=== PATIENT | male | born 1965 | race Caucasian/White ===

== ENCOUNTER 2020-07-14 09:39 | Outpatient (REF) | payer BC, SELFPAY | END 2020-07-14 09:40 | disposition home or self-care (01) | LOC: HO.HMGCLDS 09:39 | PROVIDERS: PCP Physician Assistant; Visit Provider Internal Medicine | DX: Z20.828 Contact with and (suspected) exposure to other viral communicable diseases (principal) | CPT/HCPCS: 36415; 87635 ==

== ENCOUNTER 2021-06-14 06:35 | Outpatient (REF) | payer BC, SELFPAY ==
[2021-06-14 11:16] LABS: MANUAL DIFF FLAG NO
[2021-06-14 11:30] LABS: Basophils Percent Auto 0.5 % (0-2); Eosinophils Absolute Auto 0.2 X10*3/uL (0.0-0.4); Eosinophils Percent Auto 2.5 % (0-4); Hematocrit 40.4 % (42-52); Hemoglobin 13.5 g/dl (14.0-18.0); Imm Gran Abs Auto 0.03 X10*3/uL (0.00-0.03); Imm Gran Pct Auto 0.4 % (0.0-0.4); Lymphocytes Absolute Auto 2.4 X10*3/uL (1.2-4.9); Lymphocytes Percent Auto 29.6 % (20-40); Mean Corpuscular HGB Conc 33.4 g/dl (31.0-36.0); Mean Corpuscular Hemoglobin 26.8 pg (27.0-33.0); Mean Corpuscular Volume 80.3 fL (80-98); Mean Platelet Volume 9.7 fL (9.4-12.4); Monocytes Absolute Auto 0.7 X10*3/uL (0.1-1.2); Monocytes Percent Auto 8.4 % (2-11); Neutrophils Absolute Auto 4.8 X10*3/uL (2.0-8.3); Neutrophils Percent Auto 58.6 % (45-73); Platelet Count 365 X10*3/uL (160-400); Red Blood Count 5.03 X10*6/uL (4.60-5.80); Red Cell Distribution Width 13.2 % (11.0-16.0); White Blood Count 8.1 X10*3/uL (4.8-10.8)
[2021-06-14 12:03] LABS: Alanine Aminotransferase 25 U/L (0-40); Albumin Level 4.4 g/dL (3.5-5.0); Alkaline Phosphatase 51 U/L (39-117); Anion Gap 14 (12-20); Aspartate Amino Transferase 18 U/L (5-37); Bilirubin Total 0.5 mg/dL (0.0-1.0); Blood Urea Nitrogen 12 mg/dL (9-16); C Reactive Protein 3.66 mg/dL (< or = 0.50); Calcium 9.7 mg/dL (8.4-10.2); Carbon Dioxide 24 mmol/L (22-29); Chloride 106 mmol/L (96-108); Cholesterol 264 mg/dL; Estimated Glomerular Filt Rate > 60; Glucose Fasting 95 mg/dL (60-99); HDL Cholesterol 37 mg/dL; LDL Cholesterol Calculated 168 mg/dl; Potassium 4.4 mmol/L (3.3-5.1); Sodium 140 mmol/L (135-145); Total Protein 7.1 g/dL (6.5-8.0); Triglycerides 297 mg/dL
[2021-06-14 12:15] LABS: Erythrocyte Sedimentation Rate 17 MM/HR (0-15)
[2021-06-14 12:20] LABS: Estimated Average Glucose 117 mg/dL; Hemoglobin A1C 131.1475 umol/L; Hemoglobin A1c % 5.7 %
[2021-06-14 12:40] LABS: Prostate Specific Antigen Scr 0.38 ng/mL (<0.05-4.0); TSH reflex Free T4 2.52 uIU/mL (0.32-4.0)
[2021-06-15 09:36] LABS: Lyme Abs Screen <0.90 index
== END 2021-06-14 06:36 | disposition home or self-care (01) ==
LOC: HO.HMGCLDS 06:35
PROVIDERS: PCP Physician Assistant; Visit Provider Internal Medicine
DX: Z12.5 Encounter for screening for malignant neoplasm of prostate (principal); I10 Essential (primary) hypertension; M71.9 Bursopathy, unspecified
CPT/HCPCS: 36415; 80053; 80061; 83036; 84153; 84443; 85025; 85652; 86140; 86617; 86618

== ENCOUNTER 2021-06-15 | Outpatient (REF) | payer BC, SELFPAY ==
[2021-06-15 11:53] LABS: Creatinine Urine 106.91 mg/dL; Microalbumin Urine < 5.0 mg/L
== END 2021-06-15 00:01 | disposition home or self-care (01) ==
LOC: HO.HMGCLNP
PROVIDERS: Visit Provider Physician Assistant
DX: I10 Essential (primary) hypertension (principal)
CPT/HCPCS: 82043

== ENCOUNTER 2021-09-03 08:26 | Outpatient (REF) | payer BC, SELFPAY ==
--- NOTE | ~2021-09-03 | XR_ITS ---
EXAMINATION: XR ANKLE, LEFT CLINICAL INFORMATION: Sprain. Pain COMPARISON: None TECHNIQUE: AP, lateral, and mortise views of the left ankle. FINDINGS: There is moderate medial malleolar soft tissue swelling with periarticular spurring. There is minimal lateral malleolar soft tissue swelling. There is no visible acute fracture or dislocation. There is a retrocalcaneal enthesophyte. The ankle mortise and subtalar joints are normal. XR/XR ankle LT min 3V IMPRESSION: Bimalleolar soft tissue swelling moderate on the medial side. No visible fracture. Degenerative arthritic changes medial tibiotalar joint.
== END 2021-09-03 08:27 | disposition home or self-care (01) ==
LOC: HO.HMGCX 08:26
PROVIDERS: PCP Physician Assistant; Visit Provider Internal Medicine
DX: S93.402A Sprain of unspecified ligament of left ankle, initial encounter (principal)
CPT/HCPCS: 73610

== ENCOUNTER → 2021-09-12 13:57 | Outpatient (BNVA) | payer BC, SELFPAY | PROVIDERS: PCP Physician Assistant; Visit Provider Physician Assistant ==

== ENCOUNTER 2021-10-16 15:00 | Outpatient (RCR) | payer BC, SELFPAY ==
--- NOTE | 2021-10-02 15:05 | MHC.PT.EP ---
[facility] [place] Office [place] Office [place] Office [address] Rocky Camacho [address] [phone] F: [phone] F: [phone] F: [phone] F: [phone] Physical Therapy Plan of Care Date of Evaluation: Date of Surgery: Diagnosis: sprain of L ankle Assessment: Patient is a 56 year old R handed male who presents with s/s consistent with L ankle sprain, ankle pain. 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 Patient past medical history includes ankle surgery, achilles re-attachment, hernia repair. Current impairments include pain, swelling, ROM, strength, activity tolerance and functional mobility. Functional limitations include decreased ability to walk, jog, stand, kurt, run through the [place] and be on his feet for long periods of time. Patient is motivated with good rehab potential. Skilled PT will address impairments and functional limitations in order to achieve goals. 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 Manual therapy to restore motion and function. Therapeutic exercise to improve strength and flexibility. Neuromuscular re-education for posture and balance. Therapeutic activities to return to functional activities of daily living. Electronically signed by: David Cole, PT Please sign and return to therapist. Thank you for your referral.
--- NOTE | 2022-05-30 09:43 | MHC.PT.DC ---
[facility] [place] Office [place] Office [place] Office [address] Rocky Camacho [address] [phone] F: [phone] F: [phone] F: [phone] F: [phone] Physical Therapy Discharge Report Diagnosis: sprain of L ankle Date of Surgery: Date of Evaluation: 10/02/21 Date of Discharge: 12/31/21 Treatments to Date: 3 Cancellations to Date: 0 No Shows to Date: 0 Discharge Status: Patient Elected to Stop Discharge Summary: Continued with ultrasound secondary to pt reports of positive response last session. No Mild discomfort in anterior ankle with soleus stretching so performed seated with towel instead of on 1/2 foam roller with better tolerance noted. Encouraged continuation of HEP at home and pt with good verbal understanding. Electronically signed by: David Cole, PT Please sign and return to therapist. Thank you for your referral.
== END 2022-05-30 09:43 | disposition home or self-care (01) ==
LOC: HO.PTCHIC 15:00
PROVIDERS: PCP Physician Assistant; Visit Provider Physician Assistant
DX: S93.402D Sprain of unspecified ligament of left ankle, subsequent encounter (principal); M19.072 Primary osteoarthritis, left ankle and foot
CPT/HCPCS: 97035; 97110; 97140; 97162

== ENCOUNTER 2022-01-21 08:28 | Outpatient (REF) | payer BC, SELFPAY ==
--- NOTE | ~2022-01-21 | XR_ITS ---
EXAMINATION: XR KNEE STANDING, BILATERAL XR KNEE, RIGHT CLINICAL INFORMATION: Pain in the knee. COMPARISON: None TECHNIQUE: AP upright of both knees. Lateral and patella views of the right knee. FINDINGS: Right knee: There is mild chondrocalcinosis. The bones, joints and soft tissues are otherwise normal. AP upright left knee: The bone and visualized joints and surrounding soft tissues are normal. XR/XR knee RT 2V IMPRESSION: Right knee: Chondrocalcinosis. Otherwise unremarkable. Limited left knee: Normal.
--- NOTE | ~2022-01-21 | XR_ITS ---
EXAMINATION: XR KNEE STANDING, BILATERAL XR KNEE, RIGHT CLINICAL INFORMATION: Pain in the knee. COMPARISON: None TECHNIQUE: AP upright of both knees. Lateral and patella views of the right knee. FINDINGS: Right knee: There is mild chondrocalcinosis. The bones, joints and soft tissues are otherwise normal. AP upright left knee: The bone and visualized joints and surrounding soft tissues are normal. XR/XR knee standing BI IMPRESSION: Right knee: Chondrocalcinosis. Otherwise unremarkable. Limited left knee: Normal.
== END 2022-01-21 08:29 | disposition home or self-care (01) ==
LOC: HO.HOSX 08:28
PROVIDERS: PCP Physician Assistant; Visit Provider Physician Assistant
DX: M17.11 Unilateral primary osteoarthritis, right knee (principal); M25.562 Pain in left knee
CPT/HCPCS: 20610; 73560; 73565; J1040

== ENCOUNTER → 2022-10-24 12:20 | Outpatient (BNVA) | payer BC, SELFPAY | PROVIDERS: PCP Physician Assistant; Referring Provider Physician Assistant; Visit Provider Internal Medicine | DX: Z00.8 Encounter for other general examination (principal); R94.31 Abnormal electrocardiogram [ECG] [EKG]; I10 Essential (primary) hypertension; E78.5 Hyperlipidemia, unspecified | CPT/HCPCS: 93005 ==

== ENCOUNTER → 2022-11-15 10:31 | Outpatient (REF) | payer BC, SELFPAY ==
--- NOTE | 2022-11-15 10:34 | CA_ITS ---
Acquisition Time: 2022-11-15 10:51:30 Total Exercise Time: 00:08:46 Test Indications: abn ekg Medications: see chart Protocol: HEMALATHA Max HR: 142 BPM 88% of Pred: 161 BPM Max BP: 200/050 mmHG Max Work Load: 10.1 METS Exercise stress test with exercise 8 min 46 sec of Hemalatha protocol, achieving 88% MPHR with sob and fatigue, requesting to stop, no chest discomfort, with isolated PVCs, ventricular cuplets and one 5 beat NSVT, with hypertensive response to exercise with max BP 200/50, with EKG meeting criteria for ischemia in some lead, then with T wave abnormalities in V3-V6 in recovery- suggestive of ischemia. Echo images obtained by [facility] at rest and immediately post peak exercise, definity contrast used. Test reviewed with Dr Carlos. Echo images reviewed at rest and post stress. No RWMA and normal LVEF at rest. Post stress there is augmentation of the LV function and LV cavity appears smaller. Images are somewhat limited but no definitive RWMA noted. EKG suggestive of ischemia. Conclusion: Equivocal stress echocardiogram. Referred By: Javier Cox Overread By: Alexsander Carlos
== END ==
LOC: HO.CARD 10:31
PROVIDERS: Visit Provider Internal Medicine
DX: R94.31 Abnormal electrocardiogram [ECG] [EKG] (principal)
CPT/HCPCS: 93350; Q9957

== ENCOUNTER 2022-11-26 07:01 | Outpatient (REF) | payer BC, SELFPAY ==
[2022-11-26 08:09] LABS: Alanine Aminotransferase 29 U/L (0-40); Albumin Level 4.4 g/dL (3.5-5.0); Alkaline Phosphatase 62 U/L (39-117); Anion Gap 15 (12-20); Aspartate Amino Transferase 20 U/L (5-37); Bilirubin Total 0.4 mg/dL (0.0-1.0); Blood Urea Nitrogen 13 mg/dL (9-16); Calcium 9.2 mg/dL (8.4-10.2); Carbon Dioxide 24 mmol/L (22-29); Chloride 107 mmol/L (96-108); Cholesterol 196 mg/dL; Estimated Glomerular Filt Rate > 60; Glucose Fasting 93 mg/dL (60-99); HDL Cholesterol 39 mg/dL; LDL Cholesterol Calculated 122 mg/dl; Potassium 4.3 mmol/L (3.3-5.1); Sodium 142 mmol/L (135-145); Total Protein 6.9 g/dL (6.5-8.0); Triglycerides 177 mg/dL; Uric Acid 5.4 mg/dL (3.4-7.0)
[2022-11-26 08:28] LABS: Prostate Specific Antigen Scr 0.48 ng/mL (<0.05-4.0); TSH reflex Free T4 2.65 uIU/mL (0.32-4.0)
[2022-11-26 11:32] LABS: Creatinine Urine 222.17 mg/dL; Microalbum/Creatinine Ratio Ur 5.8 ug/mg cr
== END 2022-11-26 07:02 | disposition home or self-care (01) ==
LOC: HO.LAB 07:01
PROVIDERS: PCP Physician Assistant; Visit Provider Physician Assistant
DX: Z00.00 Encounter for general adult medical examination without abnormal findings (principal); Z12.5 Encounter for screening for malignant neoplasm of prostate; M10.9 Gout, unspecified; E78.5 Hyperlipidemia, unspecified; I10 Essential (primary) hypertension
CPT/HCPCS: 36415; 80053; 80061; 82043; 84153; 84443; 84550

== ENCOUNTER → 2023-02-04 15:01 | Outpatient (BNVA) | payer BC, SELFPAY | PROVIDERS: PCP Physician Assistant; Referring Provider Physician Assistant; Visit Provider Nurse Practitioner Family | DX: I25.10 Atherosclerotic heart disease of native coronary artery without angina pectoris (principal); I10 Essential (primary) hypertension; E78.2 Mixed hyperlipidemia; R94.39 Abnormal result of other cardiovascular function study | CPT/HCPCS: 99212 ==

== ENCOUNTER 2023-05-20 15:09 | Outpatient (AMB) | payer BC, SELFPAY ==
--- NOTE | 2023-05-20 15:13 | AM.OFFWIN_ITS ---
Intake Vital Signs 05/20/23 15:16 Height 5 ft 6 in BP 128/62 Blood Pressure Location Rt brachial Position Sitting Pulse 57 Pulse Source Pulse Oximeter Temp 96.4 F L Temp Source Temporal Artery Scan Pulse Oximetry (%) 97 Oxygen Delivery Method Room Air Intake Visit Reasons: EP swelling and pain in right foot (lobby) Intake Note: Pt is here c/o possible infection on his right foot. Pt states he does have gout. Patient Tobacco Use Status: Never used Tobacco Allergies No Known Allergies Allergy (Mild, Verified 05/20/23 15:49) NOT APPLICABLE N.K.D.A. Allergy (Unknown, Uncoded 05/20/23 15:49) Hives Medication List - Last Reconciled 05/20/23 by Laron Iglesias MD allopurinol 300 mg PO DAILY 90 days amlodipine 10 mg PO DAILY 90 days atorvastatin 40 mg PO BEDTIME carisoprodol (Soma) 350 mg PO QID 30 days lisinopril 5 mg PO DAILY prednisone 60 mg (3 x 20 mg) PO DAILY HPI EP swelling and pain in right foot (lobby) HPI Details 57-year-old male presents to the office for a sick visit. Patient is having a flare-up of his gout symptoms. This time it is on his right foot great toe. Symptoms of pain started yesterday. Throbbing in nature. Has prior history of gout. [facility] Medical History Gout HLD (hyperlipidemia) HTN (hypertension) Surgical History History of colonoscopy (~2013) History of foot surgery (~2005) History of right inguinal hernia repair (~2004) History of right knee surgery (~2008) Family History Father CAD (coronary artery disease) Myocardial infarction Heart problem Mother Hypertension Social History Housing: House Alcohol intake: current Alcohol intake frequency: a few times a month Alcohol type: beer and wine Patient Tobacco Use Status: Never used Tobacco e-Cigarette/Vaping Use: Never Used service: No Current occupational status: employed Current occupation: rt handed/[employer] Cognitive needs: No Hearing needs: No Vision needs: Yes (Reading glasses, Pt has not seen an eye doctor in 25 years.) Physical Exam Vital Signs: Last Vital Signs Temp 96.4 F L 05/20/23 15:16 Pulse 57 05/20/23 15:16 BP 128/62 05/20/23 15:16 Pulse Ox 97 05/20/23 15:16 Oxygen Delivery Method Room Air 05/20/23 15:16 Extrem Other: Right foot: Swelling over the MTP joint. Pain on flexion. Mild erythema and increased warmth that the joint. Assessment & Plan Assessment & Plan (1) Gout attack: Code(s): M10.9 - Gout, unspecified Plan: Prednisone called in. Continue the allopurinol at the same dosage. After the gout flare up has subsided, increasing the dosage of allopurinol should be considered. Medications: New prednisone 60 mg (3 x 20 mg) PO DAILY 9 tabs 0RF Coding Level of Care Code Est Pt Level 3 (48948) Diagnoses Gout attack M10.9
[2023-05-20 15:16] VITALS: BP 128/62; PULSE 57; TEMP 35.8; O2SAT 97
== END 2023-05-20 16:20 | disposition home or self-care (01) ==
PROVIDERS: PCP Physician Assistant; Visit Provider Internal Medicine
DX: M10.9 Gout, unspecified (principal)
CPT/HCPCS: 99213

== ENCOUNTER 2023-05-21 13:53 | Outpatient (AMB) | payer BC, SELFPAY ==
[2023-05-21 14:24] VITALS: BP 138/70; PULSE 78; O2SAT 98; BMI 31.6
--- NOTE | 2023-05-21 14:24 | MHC.PC.OV ---
Vital Signs 05/21/23 14:24 Height 5 ft 6 in Weight 196 lb BMI 31.6 BP 138/70 Blood Pressure Location Lt brachial Position Sitting Pulse 78 Pulse Source Pulse Oximeter Pulse Oximetry (%) 98 Oxygen Delivery Method Room Air Intake Visit Reasons: f/u labs Allergies carisoprodol [From Soma] Adverse Reaction (Intermediate, Verified 05/22/23 07:12) Altered mental status N.K.D.A. Allergy (Unknown, Uncoded 05/21/23 14:24) Hives Medication List - Last Reconciled 05/21/23 by Markel Geronimo PA-C allopurinol 300 mg PO DAILY 90 days amlodipine 10 mg PO DAILY 90 days atorvastatin 40 mg PO BEDTIME carisoprodol (Soma) 350 mg PO QID 30 days lisinopril 5 mg PO DAILY prednisone 60 mg (3 x 20 mg) PO DAILY Tobacco use date assessed: 03/13/22 Dental Screening Dental Screen Date: 05/21/23 Did you have a dental visit in the last 12 months?: Yes Did you have a dental problem in the last 6 months where you did not have access to dental care?: No Was dental information given to patient?: Patient has dentist HPI f/u labs HPI Details Patient is a 57-year-old male here today for follow-up visit. Patient's pattern medical cause 3 significant for hypertension, hyperlipidemia, gout, chronic osteoarthritis lumbar spine pain. Concern-> reports worsening vision over the last year. He would like to see eye doctor for new prescriptive glasses. .. Hyperlipidemia continues on statin therapy without side effect. Most recent lipid panel showing improved total cholesterol and LDL. . Gout: Recently presented to urgent care with an acute gout flare. Was placed on prednisone 60 mg x 3 days. Reports some dietary indiscretion which was likely the cause of his gout flare. He is concerned as he would like extended prednisone treatment as has gout tends to come back after a few days. .. Hypertension: Patient's blood pressure acceptable today in office. Continues on amlodipine and lisinopril with good effect. Laboratory Tests 06/14/21 11/26/22 06:46 07:13 Creatinine 0.79 Cholesterol 264 196 LDL Cholesterol, C alc 168 122 PSA Screen 0.48 TSH 2.65 PFSH Medical History Gout HLD (hyperlipidemia) HTN (hypertension) Surgical History History of colonoscopy (~2013) History of foot surgery (~2005) History of right inguinal hernia repair (~2004) History of right knee surgery (~2008) Family History Father CAD (coronary artery disease) Myocardial infarction Heart problem Mother Hypertension Social History Housing: House Alcohol intake: current Alcohol intake frequency: a few times a month Alcohol type: beer and wine Patient Tobacco Use Status: Never used Tobacco e-Cigarette/Vaping Use: Never Used service: No Current occupational status: employed Current occupation: rt handed/[employer] Cognitive needs: No Hearing needs: No Vision needs: Yes (Reading glasses, Pt has not seen an eye doctor in 25 years.) Questionnaire PHQ-9 Over the last 2 weeks, how often have you been bothered by any of the following problems? 1. Little interest or pleasure in doing things: not at all 2. Feeling down, depressed, or hopeless: not at all 3. Trouble falling or staying asleep, or sleeping too much: not at all 4. Feeling tired or having little energy: not at all 5. Poor appetite or overeating: not at all 6. Feeling bad about yourself - or that you are a failure or have let yourself or your family down: not at all 7. Trouble concentrating on things, such as reading the newspaper or watching television: not at all 8. Moving or speaking so slowly that other people could have noticed. Or the opposite - being so fidgety or restless that you have been moving around a lot more than usual: not at all 9. Thoughts that you would be better off or of hurting yourself in some way: not at all Total score: 0 Depression Screening Interpretation: Negative 20161 - PHQ-9 Billing: Yes Source: Developed by Drs. Jimmy Hughes, Adelaida Gaffney, Flavio Guerrero and colleagues, with an educational wero from [employer]. Thrive Questionnaire Date Thrive assessed: 05/21/23 I am a: Patient What is your living situation today?: I have a steady place to live Within the past 12 months, did the food you bought not last and you didn't have the money to get more?: Never true Within the past 12 months, did you worry whether your food would run out before you got money to buy more?: Never true Do you have trouble paying for medicines?: No Do you have trouble getting transportation to medical appointments?: No Do you have trouble paying your heating and electricity bill?: No Do you have trouble taking care of your child, family member or friend?: No Do you have trouble with day-to-day activities such as bathing, preparing meals, shopping, managing finances, etc.?: No Are you currently unemployed and looking for a job?: No Are you interested in more education?: No Currently or been in a relationship where the following occur: no concerns reported AUDIT C Alcohol Use Questionnaire (AUDIT-C) 1. How often do you have a drink containing alcohol?: Monthly or less 2. How many drinks containing alcohol do you have on a typical day when you are drinking?: 1 or 2 3. How often do you have six or more drinks on one occasion?: Never Total Score: 1 MALI-7 AMB Questionnaire MALI-7 Date MALI - 7 assessed: 05/21/23 Feeling nervous, anxious, or on edge: 0 = Not at all Not being able to stop or control worryin = Not at all Worrying too much about different things: 0 = Not at all Trouble relaxin = Not at all Being so restless that it is hard to sit still: 0 = Not at all Becoming easily annoyed or irritable: 0 = Not at all Feeling afraid as if something awful might happen: 0 = Not at all Total MALI-7 score (0-4 normal; 5-9 mild; 10-14 moderate; 15-21 severe): 0 Source: Developed by Drs. Jimmy Hughes, Adelaida Gaffney, Flavio Guerrero and colleagues, with an educational wero from [employer] MALI-7 Assessment Billing MALI-7 Assessment Tool: MALI-7 Assessment 76600 Review of Systems Const Denies headache(s) Eyes Denies loss of vision ENT Denies vertigo, Denies dizziness, Denies headache(s) and Denies sore throat Card Denies chest pain, Denies leg edema and Denies lightheadedness Resp Denies cough, Denies hemoptysis and Denies wheezing GI Denies abdominal pain, Denies melena, Denies constipation, Denies diarrhea and Denies vomiting Denies dysuria, Denies urinary frequency and Denies urinary urgency Musc Denies arthralgias, Denies joint swelling, Denies numbness and Denies tingling Neuro Denies Abnormal speech present, Denies behavioral changes, Denies vertigo, Denies dizziness, Denies headache(s), Denies loss of vision, Denies memory loss, Denies numbness and Denies tingling Psych Denies anxiety, Denies behavioral changes, Denies depression, Denies memory loss and Denies panic attacks Angelo/Lymph Denies easy bleeding and Denies easy bruising Aller/Immun Denies wheezing Physical exam (Primary Care) Vital Signs: Last Vital Signs Pulse 78 05/21/23 14:24 BP 138/70 05/21/23 14:24 Pulse Ox 98 05/21/23 14:24 Oxygen Delivery Method Room Air 05/21/23 14:24 BMI result Body Mass Index 31.6 Tobacco/Smoking Status: Tobacco use Status Tobacco use date assessed 03/13/22 05/21/23 14:28 Patient Tobacco Use Status Never used Tobacco 05/21/23 14:28 e-Cigarette/Vaping Use Never Used 05/21/23 14:28 PHQ-9: PHQ-9 Score PHQ-9: Total score 0 05/21/23 14:46 Depression Screening Interpretation: Negative Thrive Assessment: Date of Thrive Assessment Date Thrive assessed 05/21/23 05/21/23 14:28 Currently or been in a relationship where the following occur: no concerns reported Const General: healthy appearing, no acute distress, alert and awake Nutritional Appearance: well nourished Orientation/consciousness: oriented to person, oriented to place and oriented to time HENMT Ears: TM's normal bilaterally General nose exam: Normal nasal mucous membranes and turbinates present Eyes Conjunctivae: conjunctivae normal Sclerae: sclerae normal Pupils: Equal, round and reactive pupils present Neck Neck: Yes no lymphadenopathy and Yes no JVD Thyroid: Thyroid normal Carotids: no bruits Resp Effort & Inspection: normal respiratory effort and not tachypneic Auscultation: no crackles, no rales, no rhonchi and no wheezes Cardio Rate: regular rate Rhythm: regular rhythm Heart sounds: no murmurs and normal S1 and S2 GI Palpation (GI): Soft to palpation, nontender, no hepatomegaly and no splenomegaly Auscultation: normal bowel sounds Skin General skin exam: no rashes or lesions noted and dry skin Neuro General: oriented to person, oriented to place and oriented to time Cranial nerves: Yes Equal, round and reactive pupils present Speech: No Abnormal speech present Gait exam (Neuro): Normal gait present Motor exam (neuro): no tremor noted Extrem Right upper extremity: full ROM Left upper extremity: full ROM Right lower extremity: full ROM; no edema Left lower extremity: full ROM; no edema Psych Mental Status: mental status grossly normal Speech and movement: Normal speech and movement present Affect: normal affect Attitude: cooperative Thought process: Normal thought process present Assessment and Plan Assessment & Plan (1) HTN (hypertension): Code(s): I10 - Essential (primary) hypertension Qualifiers: Hypertension type: essential hypertension Qualified Code(s): I10 - Essential (primary) hypertension Plan: Patient's blood pressure acceptable today in office. Will continue his current antihypertensive medication with goal blood pressure to be below 140/90 (2) HLD (hyperlipidemia): Code(s): E78.5 - Hyperlipidemia, unspecified Qualifiers: Hyperlipidemia type: mixed hyperlipidemia Qualified Code(s): E78.2 - Mixed hyperlipidemia Plan: Patient continues on statin therapy without side effect. Continues to work on lifestyle modifications to reduce his high cholesterol. Goal LDL is to remain below 130. (3) Gout: Code(s): M10.9 - Gout, unspecified Qualifiers: Chronicity: unspecified Gout etiology: unspecified cause Gout site: ankle Laterality: left Qualified Code(s): M10.9 - Gout, unspecified Plan: Recently had gout flare after having sushi and tuna. On 60 mg prednisone x3 days. He is afraid that gout flare will reoccur and would like a longer prednisone taper thus will send lower dose prednisone taper. Advised to continue allopurinol (4) Lumbar back pain: Code(s): M54.5 - Low back pain Plan: Has stopped using Soma and has been managing with [id number] analgesics. (5) Colon cancer screening: Code(s): Z12.11 - Encounter for screening for malignant neoplasm of colon Plan: Is due for colonoscopy in 2023. Would like referral to Dr. Velazquez (6) Presbyopia of both eyes: Code(s): H52.4 - Presbyopia Plan: Patient would like to see an nutritional health coach for an eye exam. Has been having some worsening vision as of late. Does report having a family history of glaucoma. Orders: Orders Comprehensive [place]. Panel Fast 05/21/23 I10 - Essential (primary) hypertension Lipid Panel 05/21/23 E78.2 - Mixed hyperlipidemia Uric Acid 05/21/23 M10.9 - Gout, unspecified Microalbumin, Random (w Creat) 05/21/23 I10 - Essential (primary) hypertension Prostate Specific Antigen Scr 05/21/23 Z12.11 - Encounter for screening for malignant neoplasm of colon, Z12.5 - Encounter for screening for malignant neoplasm of prostate Referrals Gastroenterology Referral Z12.11 - Encounter for screening for malignant neoplasm of colon Ophthalmology Referral H52.4 - Presbyopia Medications: New prednisone take 3 tabs x 3 days , take 2 tabs x 3 days , take 1 tab x 3 days 10 mg PO DAILY 18 tabs 0RF 9 days M10.9 - Gout, unspecified Discontinued carisoprodol (Soma) Discontinued Reason: Doctor's Order 350 mg PO QID 120 tabs 3RF 30 days I10 - Essential (primary) hypertension, M54.5 - Low back pain Coding Level of Care Code Est Pt Level 4 (06145) Diagnoses HTN (hypertension) I10 Hypertension type: essential hypertension HLD (hyperlipidemia) E78.2 Hyperlipidemia type: mixed hyperlipidemia Gout M10.9 Chronicity: unspecified Gout etiology: unspecified cause Gout site: ankle Laterality: left Lumbar back pain M54.5 Colon cancer screening Z12.11 Presbyopia of both eyes H52.4 Additional Codes MALI-7 Assessment Billing - MALI-7 Assessment Tool: MALI-7 Assessment 23853 ([id number])
== END 2023-05-21 14:59 | disposition home or self-care (01) ==
PROVIDERS: PCP Physician Assistant; Visit Provider Physician Assistant
DX: I10 Essential (primary) hypertension (principal); E78.2 Mixed hyperlipidemia; M10.9 Gout, unspecified; M54.50 Low back pain, unspecified; Z12.11 Encounter for screening for malignant neoplasm of colon; H52.4 Presbyopia
CPT/HCPCS: 99214

== ENCOUNTER 2023-11-24 12:53 | Outpatient (AMB) | payer BC, SELFPAY ==
[2023-11-24 12:55] VITALS: BP 100/60; PULSE 67; O2SAT 96; BMI 32.1
--- NOTE | 2023-11-24 12:55 | A.OFFPC_ITS ---
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 Allergy (Unknown, Uncoded 11/24/23 12:55) Hives Medication List - Last Reconciled 11/24/23 by Markel Geronimo PA-C allopurinol 300 mg PO DAILY 90 days amlodipine 10 mg PO DAILY 90 days atorvastatin 40 mg PO BEDTIME lisinopril 5 mg PO DAILY Tobacco use date assessed: 11/24/23 Dental Screening Dental Screen Date: 11/24/23 Did you have a dental visit in the last 12 months?: No Did you have a dental problem in the last 6 months where you did not have access to dental care?: No Was dental information given to patient?: Patient has dentist HPI Annual exam 2 HPI0 Details Patient is a 58-year-old male here today for a routine annual physical. Patient's past medical history significant for hypertension, hyperlipidemia, gout, chronic osteoarthritis lumbar spine pain. Concern-> reports having right small toe inflammation and pain. He denies any trauma to the toe. Has used leftover prednisone which has helpful on reducing his pain. .. Hyperlipidemia continues on statin therapy without side effect. Most recent lipid panel showing improved total cholesterol and LDL. . Gout: Has not had any acute gout flares in quite awhile. Continues on allopurinol. Recently presented to urgent care with an acute gout flare. . Reports some dietary indiscretion which was likely the cause of his gout flare. .. Hypertension: Patient's blood pressure acceptable today in office. Continues on amlodipine and lisinopril with good effect. Colorectal cancer screening: Is established with GI and has upcoming colonoscopy scheduled vaccine: UTD with Tdap , UTD with COVID vaccine , Declines flu PFSH Medical History Gout HLD (hyperlipidemia) HTN (hypertension) Surgical History History of foot surgery (~2005) History of right knee surgery (~2008) History of right inguinal hernia repair (~2004) History of colonoscopy (~2013) Family History Father CAD (coronary artery disease) Myocardial infarction Heart problem Mother Hypertension Social History (Updated 11/24/23 @ 13:21 by Markel Geronimo PA-C) Housing: House Alcohol intake: current Alcohol intake frequency: a few times a month Alcohol type: beer and wine Patient Tobacco Use Status: Never used Tobacco e-Cigarette/Vaping Use: Never Used service: No Current occupational status: employed Current occupation: rt handed/[employer] Cognitive needs: No Hearing needs: No Vision needs: Yes (Reading glasses, Pt has not seen an eye doctor in 25 years.) Questionnaire PHQ-9 Over the last 2 weeks, how often have you been bothered by any of the following problems? 1. Little interest or pleasure in doing things: not at all 2. Feeling down, depressed, or hopeless: not at all 3. Trouble falling or staying asleep, or sleeping too much: not at all 4. Feeling tired or having little energy: not at all 5. Poor appetite or overeating: not at all 6. Feeling bad about yourself - or that you are a failure or have let yourself or your family down: not at all 7. Trouble concentrating on things, such as reading the newspaper or watching television: not at all 8. Moving or speaking so slowly that other people could have noticed. Or the opposite - being so fidgety or restless that you have been moving around a lot more than usual: not at all 9. Thoughts that you would be better off or of hurting yourself in some way: not at all Total score: 0 Depression Screening Interpretation: Negative Depression Screening Done: Yes 37189 - PHQ-9 Billing: Yes Source: Developed by Drs. Jimmy Hughes, Adelaida Gaffney, Flavio Guerrero and colleagues, with an educational wero from [employer]. Thrive Questionnaire Date Thrive assessed: 11/24/23 I am a: Patient What is your living situation today?: I have a steady place to live Within the past 12 months, did the food you bought not last and you didn't have the money to get more?: Never true Within the past 12 months, did you worry whether your food would run out before you got money to buy more?: Never true Do you have trouble paying for medicines?: No Do you have trouble getting transportation to medical appointments?: No Do you have trouble paying your heating and electricity bill?: No Do you have trouble taking care of your child, family member or friend?: No Do you have trouble with day-to-day activities such as bathing, preparing meals, shopping, managing finances, etc.?: No Are you currently unemployed and looking for a job?: No Are you interested in more education?: No Currently or been in a relationship where the following occur: no concerns reported THRIVE Score: 0 AUDIT C Alcohol Use Questionnaire (AUDIT-C) 1. How often do you have a drink containing alcohol?: Monthly or less 2. How many drinks containing alcohol do you have on a typical day when you are drinking?: 1 or 2 3. How often do you have six or more drinks on one occasion?: Never Total Score: 1 MALI-7 AMB Questionnaire MALI-7 Date MALI - 7 assessed: 11/24/23 Feeling nervous, anxious, or on edge: 0 = Not at all Not being able to stop or control worryin = Not at all Worrying too much about different things: 0 = Not at all Trouble relaxin = Not at all Being so restless that it is hard to sit still: 0 = Not at all Becoming easily annoyed or irritable: 0 = Not at all Feeling afraid as if something awful might happen: 0 = Not at all Total MALI-7 score (0-4 normal; 5-9 mild; 10-14 moderate; 15-21 severe): 0 Source: Developed by Drs. Jimmy Hughes, Adelaida Gaffney, Flavio Guerrero and colleagues, with an educational wero from [employer]. MALI-7 Assessment Billing MALI-7 Assessment Tool: MALI-7 Assessment 23365 Review of Systems Const Denies body aches, Denies chills, Denies excessive sweating, Denies fatigue, Denies fever(s) and Denies headache(s) Eyes Denies blurry vision ENT Denies dysphagia, Denies vertigo, Denies dizziness, Denies headache(s), Denies hearing loss and Denies tinnitus Card Denies chest pain, Denies chest pain with activity, Denies syncope, Denies irregular heart rhythm and Denies dyspnea Resp Denies chest congestion, Denies cough, Denies hemoptysis, Denies dyspnea and Denies wheezing GI Denies abdominal pain, Denies melena, Denies hematochezia, Denies coffee ground emesis, Denies dysphagia, Denies diarrhea, Denies nausea and Denies vomiting Denies difficulty urinating, Denies dysuria, Denies urinary frequency, Denies urinary hesitancy and Denies urinary urgency Musc Denies arthralgias, Denies limited range of motion, Denies muscle cramps and Denies muscle weakness Skin/Breast Denies rash and Denies skin ulcer Neuro Denies Abnormal speech present, Denies confusion, Denies vertigo, Denies dizziness, Denies syncope, Denies headache(s), Denies memory loss and Denies seizure-like activity Psych Denies anxiety, Denies confusion, Denies depression, Denies memory loss, Denies panic attacks and Denies paranoia Endo Denies excessive sweating, Denies fatigue, Denies flushing, Denies polydipsia and Denies polyuria Aller/Immun Denies wheezing Physical exam (Primary Care) Vital Signs: Last Vital Signs Pulse 67 11/24/23 12:55 BP 100/60 11/24/23 12:55 Pulse Ox 96 11/24/23 12:55 Oxygen Delivery Method Room Air 11/24/23 12:55 BMI result Body Mass Index 32.1 BMI Assessment/Plan discussion: High Tobacco/Smoking Status: Tobacco use Status Tobacco use date assessed 11/24/23 11/24/23 13:05 Patient Tobacco Use Status Never used Tobacco 11/24/23 12:56 e-Cigarette/Vaping Use Never Used 11/24/23 12:56 PHQ-9: PHQ-9 Score PHQ-9: Total score 0 11/24/23 13:05 Depression Screening Interpretation: Negative Thrive Assessment: Date of Thrive Assessment Date Thrive assessed 11/24/23 11/24/23 13:05 Currently or been in a relationship where the following occur: no concerns reported Const Other: Obese General: cooperative, comfortable, no acute distress, alert and awake; No confusion Orientation/consciousness: oriented to person, oriented to place, patient oriented x3 and No confusion HENMT Head: Yes normocephalic Ears: external ears normal and TM's normal bilaterally Face and sinus: No sinus tenderness Mouth: Normal oral and palatal mucosa present and tongue normal Teeth and gingiva: dentition normal and gingiva normal Throat: Yes posterior oropharynx normal, Yes tonsils normal and Yes uvula midline Eyes Conjunctivae: conjunctivae normal Sclerae: sclerae normal Pupils: Equal, round and reactive pupils present EOM: EOMs intact bilaterally Direct Ophthalmoscopy: No no photophobia Neck Neck: Yes no lymphadenopathy, No tender and Yes no JVD Thyroid: Thyroid normal Carotids: no bruits Chest Chest palpation & inspection: no tenderness Resp Effort & Inspection: normal respiratory effort, no audible wheezes, not labored and no stridor Auscultation: no crackles, no rales, no rhonchi and no wheezes Cardio Jugular venous distension: no JVD Rate: regular rate, not bradycardic and not tachycardic Rhythm: regular rhythm Bruits: no carotid bruits Peripheral pulses: Peripheral pulses 2+ throughout GI Inspection: Yes normal to inspection, No abdominal wall ecchymosis and No visible herniation Palpation (GI): Soft to palpation, nontender, no guarding, not rigid and No hepatosplenomegaly present Auscultation: normoactive bowel sounds General: Yes no CVA tenderness Back/Spine/Pelvis Back: no CVA tenderness and No back tenderness Cervical Spine: cervical ROM normal Thoracic/Lumbar Spine: thoracic and lumbar spine normal to inspection, straight leg raise negative bilaterally, No thoraco-lumbar ROM limited and No lumbar spinal tenderness Skin Lesions: no lesions Rashes: no rashes Wounds: no wounds Neuro General: oriented to person, oriented to place, patient oriented x3, CN's II-XI intact bilaterally and No confusion Cranial nerves: Yes Equal, round and reactive pupils present and Yes Normal accommodation reflex present Cognition (Neuro): normal cognition Speech: No Abnormal speech present Gait exam (Neuro): Normal gait present Motor exam (neuro): 5/5 motor strength present throughout Extrem Right upper extremity: full ROM; no cyanosis Left upper extremity: full ROM; no cyanosis Right lower extremity: no edema Left lower extremity: no edema Ankle/foot/toe images: 2 1. RIGHT TOE INFLAMED, NOTABLE FUNGAL NAIL INFECTION Psych Appearance: grossly normal Mental Status: mental status grossly normal Affect: normal affect Attitude: cooperative Thought process: Normal thought process present Assessment and Plan Assessment & Plan (1) Annual physical exam: Code(s): Z00.00 - Encounter for general adult medical examination without abnormal findings (2) Ammy onychomycosis: Code(s): B37.2 - Candidiasis of skin and nail (3) Toe pain, right: Code(s): M79.674 - Pain in right toe(s) Plan: Has been having right small toe pain and redness. He reports leftover prednisone was helpful. Physical exam does show an erythematous inflamed toe. Will supply him with antibiotic and prednisone taper. Advised on shoe insert and perhaps podiatry evaluation (4) HTN (hypertension): Code(s): I10 - Essential (primary) hypertension Qualifiers: Hypertension type: essential hypertension Qualified Code(s): I10 - Essential (primary) hypertension Plan: Patient's blood pressure acceptable today in office. Will continue his current antihypertensive medication with goal blood pressure to be below 140/90 (5) HLD (hyperlipidemia): Code(s): E78.5 - Hyperlipidemia, unspecified Qualifiers: Hyperlipidemia type: mixed hyperlipidemia Qualified Code(s): E78.2 - Mixed hyperlipidemia Plan: Patient continues on statin therapy without side effect. Continues to work on lifestyle modifications to reduce his high cholesterol. Goal LDL is to remain below 130. (6) Gout: Code(s): M10.9 - Gout, unspecified Qualifiers: Gout site: ankle Gout etiology: unspecified cause Chronicity: u nspecified Laterality: left Qualified Code(s): M10.9 - Gout, unspecified Plan: Recently had gout flare after having sushi and tuna. Continues on allopurinol. Advised to continue dietary modifications (7) Lumbar back pain: Code(s): M54.5 - Low back pain Plan: Has stopped using Soma and has been managing with [id number] analgesics. (8) Colon cancer screening: Code(s): Z12.11 - Encounter for screening for malignant neoplasm of colon Plan: Has upcoming endoscopy and colonoscopy with Dr. Velazquez (9) Obese: Code(s): E66.9 - Obesity, unspecified Qualifiers: Obesity type: due to excess calories Obesity classification: adult class 1 (BMI 30 - 34.9) Serious obesity comorbidity presence: without serious comorbidity Body mass index: BMI 32.0-32.9 Qualified Code(s): E66.09 - Other obesity due to excess calories; Z68.32 - Body mass index [BMI] 32.0-32.9, adult Plan: Patient does understand his BMI is over 30 will work on being more physically active and adapting to better eating habits to reduce his weight. Orders: Referrals 2 Podiatry Referral M79.674 - Pain in right toe(s) Medications: New 2 amoxicillin-pot clavulanate 875-125 mg 1 tab PO BID 7 days 14 tabs 0RF M79.674 - Pain in right toe(s) prednisone take 3 tabs x 3 days , take 2 tablets x3 days, 1 tablet x3 days 10 mg PO DIRECTED 9 days 18 tabs 0RF M10.9 - Gout, unspecified Coding Level of Care Code Est Pt Prev Care 40-64y(13002) Diagnoses Annual physical exam Z00.00 Ammy onychomycosis B37.2 Toe pain, right M79.674 Essential hypertension I10 Hypertension type: essential hypertension Mixed hyperlipidemia E78.2 Hyperlipidemia type: mixed hyperlipidemia Gout of left ankle, unspecified cause, unspecified chronicity M10.9 Gout site: ankle Gout etiology: unspecified cause Chronicity: unspecified Laterality: left Lumbar back pain M54.5 Colon cancer screening Z12.11 Class 1 obesity due to excess calories without serious comorbidity with body mass index (BMI) of 32.0 to 32.9 in adult E66.09; Z68.32 Obesity type: due to excess calories Obesity classification: adult class 1 (BMI 30 - 34.9) Serious obesity comorbidity presence: without serious comorbidity Body mass index: BMI 32.0-32.9 Additional Codes MALI-7 Assessment Billing - MALI-7 Assessment Tool: MALI-7 Assessment 59397 ([id number])
== END 2023-11-24 13:37 | disposition home or self-care (01) ==
LOC: HO.HMGH 12:53
PROVIDERS: PCP Physician Assistant; Visit Provider Physician Assistant
DX: Z00.00 Encounter for general adult medical examination without abnormal findings (principal); B37.2 Candidiasis of skin and nail; M79.674 Pain in right toe(s); I10 Essential (primary) hypertension; E78.2 Mixed hyperlipidemia; M10.9 Gout, unspecified; M54.50 Low back pain, unspecified; Z12.11 Encounter for screening for malignant neoplasm of colon; E66.09 Other obesity due to excess calories; Z68.32 Body mass index [BMI] 32.0-32.9, adult
CPT/HCPCS: 99396

== ENCOUNTER 2024-02-06 06:14 | Day surgery (SDC) | payer BC, SELFPAY ==
[2024-02-05 07:00] VITALS: BMI 32.4
--- NOTE | 2024-02-05 10:09 | HO.ANESPROP2 ---
HPI - Anesthesia Eval Consult details Narrative: 58yo M for Upper Endoscopy with dilation and Colonoscopy 2022 cardiac w/u for [employer] clearance. Abnormal stress echo, but coronary CTA ok (mild plaque). Was cleared. [facility] Active Problems Active Problems: All Active Problems Toe pain, right (Acute) Ammy onychomycosis (Acute) Presbyopia of both eyes (Acute) Colon cancer screening (Acute) Nonobstructive atherosclerosis of coronary artery (Acute) Abnormal stress ECG with treadmill (Acute) Abnormal EKG (Acute) Encounter for work capability assessment (Acute) Obese (Acute) Skin lesion of cheek (Acute) Osteoarthritis of right knee (Acute) Osteoarthritis of left ankle (Acute) Sprain of left ankle (Acute) Bursitis (Acute) Annual physical exam (Acute) Gout attack (Acute) Lumbar back pain (Acute) HTN (hypertension) (Acute) HLD (hyperlipidemia) (Acute) Gout (Acute) Past Medical History Medical History Sleep apnea Back pain Gout HLD (hyperlipidemia) HTN (hypertension) Family History Family History Father CAD (coronary artery disease) Myocardial infarction Heart problem Mother Hypertension Surgical History Surgical History History of surgery on wrist History of foot surgery (~2005) History of right knee surgery (~2008) History of right inguinal hernia repair (~2004) History of colonoscopy (~2013) Social History Social History Housing: House Alcohol intake: current Alcohol intake frequency: a few times a month Alcohol type: beer and wine Patient Tobacco Use Status: Never used Tobacco e-Cigarette/Vaping Use: Never Used service: No Current occupational status: employed Current occupation: rt handed/[employer] Cognitive needs: No Hearing needs: No Vision needs: Yes (Reading glasses, Pt has not seen an eye doctor in 25 years.) Meds Allergies Allergy/AdvReac Type Severity Reaction Status Date / Time carisoprodol [From Soma] AdvReac Intermediate Altered Verified 02/06/24 07:36 mental status Home Medications ?Medication ?Instructions ?Recorded ?Confirmed ?Last Taken ?Type ibuprofen 200 mg tablet 200 mg PO Q8-10H PRN Pain 02/05/24 02/05/24 Unknown History Exam Height,Weight and Vital Signs: Height 5 ft 6 in Weight 91.172 kg Assessment and Plan Assessment Anesthesia Assessment: Chart Reviewed
[2024-02-06 06:44] VITALS: BMI 31.1
[2024-02-06 06:45] VITALS: BP 179/82; PULSE 65; RESP 18; TEMP 36.8; O2SAT 97
[2024-02-06] MEDS: Lactated Ringers 1,000 ML 100 ML IVCONT (06:49)
[2024-02-06 07:26] VITALS: BP 147/74
--- NOTE | 2024-02-06 08:10 | P.CONAN_ITS ---
[facility] Active Problems Active Problems: All Active Problems Toe pain, right (Acute) Ammy onychomycosis (Acute) Presbyopia of both eyes (Acute) Colon cancer screening (Acute) Nonobstructive atherosclerosis of coronary artery (Acute) Abnormal stress ECG with treadmill (Acute) Abnormal EKG (Acute) Encounter for work capability assessment (Acute) Obese (Acute) Skin lesion of cheek (Acute) Osteoarthritis of right knee (Acute) Osteoarthritis of left ankle (Acute) Sprain of left ankle (Acute) Bursitis (Acute) Annual physical exam (Acute) Gout attack (Acute) Lumbar back pain (Acute) HTN (hypertension) (Acute) HLD (hyperlipidemia) (Acute) Gout (Acute) Past Medical History Medical History Sleep apnea Back pain Gout HLD (hyperlipidemia) HTN (hypertension) Family History Family History Father CAD (coronary artery disease) Myocardial infarction Heart problem Mother Hypertension Family history of problems with anesthesia: No Surgical History Surgical History History of surgery on wrist History of foot surgery (~2005) History of right knee surgery (~2008) History of right inguinal hernia repair (~2004) History of colonoscopy (~2013) History of Problems with Anesthesia: No Social History Social History Housing: House Alcohol intake: current Alcohol intake frequency: a few times a month Alcohol type: beer and wine Patient Tobacco Use Status: Never used Tobacco e-Cigarette/Vaping Use: Never Used Are you DNR?: No Advance Directives: No Advance Directives Information Provided: Yes Nutrition Risks: No Nutritional Risk service: No Current occupational status: employed Current occupation: rt handed/[employer] Cognitive needs: No Hearing needs: No Vision needs: Yes (Reading glasses, Pt has not seen an eye doctor in 25 years.) Meds Allergies Allergy/AdvReac Type Severity Reaction Status Date / Time carisoprodol [From Soma] AdvReac Intermediate Altered Verified 02/06/24 07:36 mental status Active Medications: Current Medications Lactated Ringer's (Lr) 1,000 mls @ 100 mls/hr IVCONT .Q10H RAMAN Last Admin: 02/06/24 06:49 Dose: 100 mls/hr Sodium Biphosphate/Sodium Phosphate (Sodium Phosphate,Hendry-Dibasic 133 Ml Enema) 133 ml [place] ONCE PRN PRN Reason: Poor Colonoscopy Prep Results Home Medications ?Medication ?Instructions ?Recorded ?Confirmed ?Last Taken ?Type ibuprofen 200 mg tablet 200 mg PO Q8-10H PRN Pain 02/05/24 02/05/24 Unknown History Exam Height,Weight and Vital Signs: Height 5 ft 6 in Weight 87.543 kg Last Vital Signs Temp 98.2 F 02/06/24 06:45 Pulse 65 02/06/24 06:45 Resp 18 02/06/24 06:45 BP 147/74 H 02/06/24 07:26 Pulse Ox 97 02/06/24 06:45 O2 Del Method Room Air 02/06/24 06:45 Airway Mallampati Class: II TM Dist: >3cm Neck ROM: Full Heart: RRR Lungs: CTA Assessment and Plan Assessment Anesthesia Assessment: Anesthesia Plan Discussed Final Anesthetic Review Family History of Problems with Anesthesia: No History of Problems with Anesthesia: No NPO: Yes Final Preanesthetic Review: Meds/Allgs Chart Reviewed, Consent Obtained/Reviewed and Anes Risks/Benef Reviewed Patient Risk: Low Procedure Risk: Low Anesthetic Plan Anesthetic Plan: MAC: Disposition: Standard PACU
[2024-02-06 08:29] VITALS: BP 138/78; PULSE 79; RESP 16; TEMP 36.4; O2SAT 96
--- NOTE | 2024-02-06 08:31 | P.BOP_ITS ---
Brief Operative Note Date of Service: 02/06/24 Pre-op diagnosis: Dysphagia, Screening Post-op diagnosis: other (Erosive esophagitis, Hiatal hernia, Colon polyp) Procedure: EGD with biopsies, Colonoscopy to the cecum and TI with bx/removal of polyp Surgeon: Jimmy Velazquez MD Anesthesia: MAC Was an Child Development Instructor used for this Procedure?: No Estimated blood loss (mL): 2.0 Pathology: other (A. EG Junction at 35cm B. Transverse colon polyp) Condition: stable Disposition: PACU
[2024-02-06 08:44] VITALS: BP 147/77; PULSE 60; RESP 16; TEMP 36.3; O2SAT 96
--- NOTE | 2024-02-06 10:12 | HO.POSTANES ---
Post Anesthesia Evaluation Post Anesthesia Evaluation Date of Service: 02/06/24 Vital Signs: Vital Signs Temp Pulse Resp BP Pulse Ox O2 Del Method O2 Flow Rate 02/06/24 08:44 97.3 F 60 16 147/77 H 96 Room Air 02/06/24 08:29 97.6 F 79 16 138/78 96 Simple Mask 6 02/06/24 07:26 147/74 H 02/06/24 06:45 98.2 F 65 18 179/82 H 97 Room Air Anesthesia: Monitored Mental Status: Awake Pain Control: Satisfactory Nausea/Vomiting: None Hydration: Adequate Anesthesia-Related Issues: No Anes. Related Issues
--- NOTE | 2024-02-06 12:37 | OP_ITS ---
DATE OF SERVICE: 02/06/2024 SURGEON: Jimmy Velazquez MD INDICATIONS: The patient presents for evaluation of intermittent dysphagia, colorectal cancer screening. Full consent has been obtained from him for both procedures, including risks of bleeding and perforation. PREOPERATIVE DIAGNOSIS: POSTOPERATIVE DIAGNOSIS: PROCEDURE PERFORMED: Esophagogastroduodenoscopy with biopsies, and colonoscopy to the cecum and terminal ileum with biopsy and removal of polyp. ESTIMATED BLOOD LOSS: COMPLICATIONS: ANESTHESIA: Monitored anesthesia care. ASSISTANTS: SPECIMENS: PREOPERATIVE DIAGNOSES: Dysphagia and colorectal cancer screening. POSTOPERATIVE DIAGNOSES: Dysphagia, colorectal cancer screening, erosive esophagitis, hiatal hernia, small colon polyp, diverticulosis, and internal hemorrhoids. DESCRIPTION OF PROCEDURE: The patient was placed in the left lateral decubitus position. The Olympus video gastroscope was passed in the posterior oropharynx and upper esophagus under direct vision. The scope was passed slowly into the distal esophagus. The gastroesophageal junction appeared at 35 cm. This area was notable for evidence of some erosive esophagitis with less than 10 mm erosions. There was some irregularity consistent with possible Ang's mucosa, but this was not definitive. There was no ulceration, mass, nor stricture. The scope easily entered the stomach. There was a small hiatal hernia. The scope was advanced to the pylorus and the duodenum was cannulated to the descending portion. The duodenum including the bulb appeared normal without mass or ulceration. Scope was withdrawn back in the stomach. The gastric antrum and body appeared normal with good peristalsis. The scope was retroflexed visualizing the proximal stomach carefully, which appeared normal, without any sign of mass or ulceration. The scope was straightened and withdrawn back into the esophagus. Given the findings at the EG junction with erosive esophagitis, I did not perform any balloon dilation. I did obtain biopsies. Proximal to this, the esophageal mucosa appeared normal. The scope was withdrawn from the patient. He was turned around for the colonoscopy. The digital rectal exam revealed no abnormalities. The Olympus video pediatric colonoscope was then entered into the rectum and advanced easily to the cecum. Once in the cecum, I did identify normal-appearing cecal pouch with appendiceal orifice and a normal-appearing ileocecal valve. The terminal ileum was cannulated and appeared normal. The scope was withdrawn back in the colon. The entire cecum and ileocecal valve appeared normal. The scope was then slowly withdrawn assessing all mucosal surfaces carefully. Preparation was excellent. In the transverse colon, was a flat, approximately 3 or 4 mm polyp, which was biopsied and completely removed with the cold biopsy forceps. I did not visualize any other polyps, colitis, or angiodysplasia. There was a mild amount of sigmoid diverticulosis. In the rectum, the scope was retroflexed visualizing internal hemorrhoids, but no other pathology. The rectal mucosa appeared normal. The scope was straightened and withdrawn from the patient. He tolerated the procedure well and was returned to the recovery area in stable condition. IMPRESSION: 1. Erosive esophagitis, hiatal hernia. 2. Colon polyp. 3. Diverticulosis. 4. Internal hemorrhoids. PLAN: The results of the biopsy will be checked. Given these findings, I do suspect his dysphagia is probably as a result of the erosive esophagitis and esophageal spasm. I am going to start him on omeprazole 40 mg daily. He does describe occasional heartburn, but not on a daily basis. I will most likely recommend a repeat upper endoscopy in several months to assess for healing and be sure there is no underlying Ang esophagus and there is no need for dilation. If the colon polyp is a tubular adenoma, I would recommend a followup coloscopy in 5 years. If the colon polyps only hyperplastic, I would recommend a followup coloscopy in 10 years. He was advised not to use any aspirin and NSAIDs for at least a week. MD KONG Rodriguez/MARISSA / [id number]
== END 2024-02-06 09:20 | disposition home or self-care (01) ==
PROVIDERS: PCP Physician Assistant; Visit Provider Internal Medicine
PROC: (CPT 45380; principal; 2024-02-06 07:30)
DX: Z12.11 Encounter for screening for malignant neoplasm of colon (principal); D12.3 Benign neoplasm of transverse colon; K57.30 Diverticulosis of large intestine without perforation or abscess without bleeding; K64.8 Other hemorrhoids; R13.19 Other dysphagia; K20.80 Other esophagitis without bleeding; K44.9 Diaphragmatic hernia without obstruction or gangrene; R12 Heartburn; G47.30 Sleep apnea, unspecified; I10 Essential (primary) hypertension; E78.5 Hyperlipidemia, unspecified; M10.9 Gout, unspecified; Z79.1 Long term (current) use of non-steroidal anti-inflammatories (NSAID); Z79.899 Other long term (current) drug therapy
CPT/HCPCS: 45380; 43239; 88305; 88313; J2704

== ENCOUNTER 2024-02-17 12:22 | Outpatient (AMB) | payer BC, SELFPAY ==
[2024-02-17 12:40] VITALS: BP 120/60; PULSE 62; BMI 32.4
--- NOTE | 2024-02-17 12:40 | MHC.OFFVIS ---
Vital Signs 02/17/24 12:40 Height 5 ft 6 in Weight 201 lb 0.985 oz BMI 32.4 BP 120/60 Blood Pressure Location Rt brachial Position Sitting Pulse 62 Intake Visit Reasons: 1 yr f/up per DC Slide Fasteners Inspector Required: No Accompanied by: Self / Same As Patient Allergies carisoprodol [From Soma] Adverse Reaction (Intermediate, Verified 02/06/24 07:36) Altered mental status Medication List - Last Reconciled 02/17/24 by Javier Cox MD allopurinol 300 mg PO DAILY 90 days amlodipine 10 mg PO DAILY 90 days atorvastatin 40 mg PO BEDTIME ibuprofen 200 mg PO Q8-10H PRN lisinopril 5 mg PO DAILY HPI Comments Details: Jimmy returns for follow-up regarding coronary artery disease. In the past, he was seen regarding an abnormal EKG and the need to go for [employer]. That had shown some T inversions in lead 3, AVF and V5 V6 but similar to previous EKG from 2016. He underwent further workup with an exercise stress test as well as coronary CTA. Overall, only mild CAD. He also has hypertension and dyslipidemia. Overall, he is feeling good. No new complaints. No angina. Fairly active with no limitations. [facility] Medical History Sleep apnea Back pain Gout HLD (hyperlipidemia) HTN (hypertension) Surgical History History of surgery on wrist History of foot surgery (~2005) History of right knee surgery (~2008) History of right inguinal hernia repair (~2004) History of colonoscopy (~2013) Family History Father CAD (coronary artery disease) Myocardial infarction Heart problem Mother Hypertension Social History Housing: House Alcohol intake: current Alcohol intake frequency: a few times a month Alcohol type: beer and wine Patient Tobacco Use Status: Never used Tobacco e-Cigarette/Vaping Use: Never Used service: No Current occupational status: employed Current occupation: rt handed/[employer] Cognitive needs: No Hearing needs: No Vision needs: Yes (Reading glasses, Pt has not seen an eye doctor in 25 years.) Review of Systems Const Denies chills, Denies fatigue, Denies fever(s), Denies frequent falls, Denies weakness, Denies weight gain and Denies weight loss ENT Denies dizziness Card Denies chest pain, Denies leg edema, Denies lightheadedness, Denies palpitations, Denies dyspnea and Denies dyspnea on exertion Resp Denies cough, Denies dyspnea and Denies dyspnea on exertion GI Denies hematochezia Musc Denies abnormal gait, Denies muscle weakness, Denies numbness, Denies radiating pain into limb and Denies tingling Neuro Denies abnormal gait, Denies dizziness, Denies frequent falls, Denies numbness, Denies tingling and Denies weakness Endo Denies fatigue and Denies palpitations Physical Exam Vital Signs: Last Vital Signs Pulse 62 02/17/24 12:40 BP 120/60 02/17/24 12:40 BMI result Body Mass Index 32.4 Const General: comfortable and no acute distress Orientation/consciousness: patient oriented x3 HEENT Other: Unremarkable Head: Yes normal to inspection Neck Neck: Yes normal visual inspection Chest Chest palpation & inspection: normal inspection of the chest Resp Auscultation: clear to auscultation bilaterally Cardio Palpation: normal PMI Heart sounds: S1 normal heart sound present, S2 normal heart sound present, no gallops, no murmurs and no rubs GI Palpation (GI): Soft to palpation Back/Spine/Pelvis Other: unremarkable Skin General skin exam: no rashes or lesions noted Neuro General: patient oriented x3 Extrem General: Yes normal to inspection Psych Mental Status: mental status grossly normal Office Procedures EKG Details: EKG with sinus rhythm at 62/Min; leftward axis; right bundle-branch block; inferior as well as anterolateral nonspecific ST-T changes. [id number], Complete Assessment & Plan Assessment & Plan (1) Atherosclerotic cardiovascular disease: Code(s): I25.10 - Atherosclerotic heart disease of [place] coronary artery without angina pectoris Category: Medical (2) HTN (hypertension): Code(s): I10 - Essential (primary) hypertension Category: Medical Qualifiers: Hypertension type: essential hypertension Qualified Code(s): I10 - Essential (primary) hypertension (3) HLD (hyperlipidemia): Code(s): E78.5 - Hyperlipidemia, unspecified Category: Medical Qualifiers: Hyperlipidemia type: mixed hyperlipidemia Qualified Code(s): E78.2 - Mixed hyperlipidemia Plan Cardiac testing reviewed. In the exercise stress test, he was able to reach 10.1 METS on [place] protocol. No angina. Hypertensive blood pressure response. Suspected have ischemia on the EKG. However, no definitive findings on the stress echocardiographic portion. Subsequently, he underwent coronary CTA. [id number] calcific plaque in all 3 coronary artery territories but minimal stenosis, < 25%. Overall, hypertension, dyslipidemia, nonobstructive CAD. Asymptomatic. Aggressive risk factor modification. Blood pressure management. Statins for dyslipidemia. Advised him to check his lipids again and there is already an order. We will follow-up in 2 years. In the interim, he will call with any concerns. Coding Level of Care Code Est Pt Level 4 (47215) Diagnoses Atherosclerotic cardiovascular disease I25.10 Essential hypertension I10 Hypertension type: essential hypertension Mixed hyperlipidemia E78.2 Hyperlipidemia type: mixed hyperlipidemia CPT Codes EKG - CPT: 63111-[id number], Complete ([id number])
== END 2024-02-17 12:58 | disposition home or self-care (01) ==
PROVIDERS: PCP Physician Assistant; Visit Provider Internal Medicine
DX: I25.10 Atherosclerotic heart disease of native coronary artery without angina pectoris (principal); I10 Essential (primary) hypertension; E78.2 Mixed hyperlipidemia
CPT/HCPCS: 93010; 99214

== ENCOUNTER → 2024-02-17 12:22 | Outpatient (BNVA) | payer BC, SELFPAY | PROVIDERS: PCP Physician Assistant; Visit Provider Internal Medicine | DX: I25.10 Atherosclerotic heart disease of native coronary artery without angina pectoris (principal); I10 Essential (primary) hypertension; E78.5 Hyperlipidemia, unspecified | CPT/HCPCS: 93005 ==

== ENCOUNTER 2024-04-02 15:31 | Outpatient (AMB) | payer BC, SELFPAY ==
[2024-04-02 15:32] VITALS: BP 122/78; PULSE 81; TEMP 37; O2SAT 98
--- NOTE | 2024-04-02 15:32 | AM.OFFWIN_ITS ---
Intake Vital Signs 04/02/24 15:32 Height 5 ft 6 in BP 122/78 Blood Pressure Location Rt brachial Position Sitting Pulse 81 Pulse Source Pulse Oximeter Temp 98.6 F Temp Source Oral Pulse Oximetry (%) 98 Oxygen Delivery Method Room Air Intake Visit Reasons: EP-Left arm itching/redness Intake Note: pt is here for left arm itching and redness Patient Tobacco Use Status: Never used Tobacco Allergies carisoprodol [From Soma] Adverse Reaction (Intermediate, Verified 04/02/24 15:32) Altered mental status Do you need a note to return to daycare/school/sports/work: No HPI HPI Comments History of Present Illness Details Patient is a 58-year-old male complaining of left forearm itchiness x2 weeks. He states he went to his primary care doctor after having itchiness on his left arm, was diagnosed with allergic dermatitis from poison xu. His doctor gave him a prednisone taper which he finished on Friday. He states on Friday which was 3 days ago, his arm became itchy in the bumps came back. He says it looks a little bit different than it did before but it is still very itchy. He has tried cortisone 10 cream which he bought [id number] which helps a little bit. [facility] Medical History Sleep apnea Back pain Gout HLD (hyperlipidemia) HTN (hypertension) Surgical History History of surgery on wrist History of foot surgery (~2005) History of right knee surgery (~2008) History of right inguinal hernia repair (~2004) History of colonoscopy (~2013) Family History Father CAD (coronary artery disease) Myocardial infarction Heart problem Mother Hypertension Social History Housing: House Alcohol intake: current Alcohol intake frequency: a few times a month Alcohol type: beer and wine Patient Tobacco Use Status: Never used Tobacco e-Cigarette/Vaping Use: Never Used service: No Current occupational status: employed Current occupation: rt handed/[employer] Cognitive needs: No Hearing needs: No Vision needs: Yes (Reading glasses, Pt has not seen an eye doctor in 25 years.) Review of Systems Const All systems reviewed & are unremarkable except as noted in HPI and below Physical Exam Vital Signs: Last Vital Signs Temp 98.6 F 04/02/24 15:32 Pulse 81 04/02/24 15:32 BP 122/78 04/02/24 15:32 Pulse Ox 98 04/02/24 15:32 Oxygen Delivery Method Room Air 04/02/24 15:32 Const General: cooperative, healthy appearing, comfortable, no acute distress and well developed Orientation/consciousness: patient oriented x3 Limitations: no limitations Eyes General: appearance normal, both eyes and all related structures Resp Effort & Inspection: normal respiratory effort and able to speak in complete sentences Skin Other: two clusters of dried lesions on left forearm, some are linear, some are not. areas of 1bbr2nn and 2cm x 1cm, no signs of infection noted, no warmth, no ecchymosis Neuro General: patient oriented x3 Assessment & Plan Assessment & Plan (1) Contact dermatitis: Code(s): L25.9 - Unspecified contact dermatitis, unspecified cause Qualifiers: Contact dermatitis type: allergic Contact dermatitis trigger: non-food plants Qualified Code(s): L23.7 - Allergic contact dermatitis due to plants, except food Plan: Sent medium potency corticosteroid cream to pharmacy. Plan See above Medications: New triamcinolone acetonide 0.1% 1 appl topical BID 30 grams 0RF Coding Level of Care Code Est Pt Level 3 (97456) Diagnoses Allergic contact dermatitis due to plants, except food L23.7 Contact dermatitis type: allergic Contact dermatitis trigger: non-food plants
== END 2024-04-02 15:47 | disposition home or self-care (01) ==
PROVIDERS: PCP Physician Assistant; Visit Provider Physician Assistant
DX: L23.7 Allergic contact dermatitis due to plants, except food (principal)
CPT/HCPCS: 99213

== ENCOUNTER 2024-11-29 08:33 | Outpatient (AMB) | payer BC, SELFPAY ==
--- NOTE | 2024-11-29 08:46 | MHC.PC.OV ---
Vital Signs 11/29/24 08:48 Height 5 ft 6 in Weight 205 lb 6 oz BMI 33.1 BP 136/64 Blood Pressure Location Lt brachial Position Sitting Pulse 62 Pulse Source Pulse Oximeter Temp 97.1 F Temp Source Temporal Artery Scan Pulse Oximetry (%) 97 Oxygen Delivery Method Room Air Intake Visit Reasons: Annual Exam Intake Note: Patient is here today for a physical. Residential Designer Required: No Accompanied by: Self / Same As Patient Allergies carisoprodol [From [facility]] Adverse Reaction (Intermediate, Verified 11/29/24 09:05) Altered mental status Medication List - Last Reconciled 11/29/24 by Markel Geronimo PA-C allopurinol 300 mg PO DAILY 90 days amlodipine 10 mg PO DAILY 90 days atorvastatin 40 mg PO BEDTIME ibuprofen 200 mg PO Q8-10H PRN lisinopril 5 mg PO DAILY triamcinolone acetonide 0.1% 1 appl topical BID Tobacco use date assessed: 11/29/24 Dental Screening Dental Screen Date: 11/29/24 Did you have a dental visit in the last 12 months?: Yes Did you have a dental problem in the last 6 months where you did not have access to dental care?: No Was dental information given to patient?: Patient has dentist HPI Annual Exam HPI Details Patient is a 59-year-old male here today for a routine annual physical. Patient's past medical history significant for hypertension, TIARA, hyperlipidemia, gout, chronic osteoarthritis lumbar spine pain. Concern-> has been having left base of thumb pain over the last several months. He does report whenever he grabs an object he feels of sharp pain at the base of his thumb. He attributes this pain to possible arthritis. 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 .. Hyperlipidemia continues on statin therapy without side effect. Most recent lipid panel showing improved total cholesterol and LDL. . Gout: Has not had any acute gout flares in quite awhile. Continues on allopurinol. .. Hypertension: Patient's blood pressure acceptable today in office. Continues on amlodipine and lisinopril with good effect. . GERD: Recently had upper endoscopy that did show inflammation. Was started on Prilosec and reports his GERD symptoms have essentially resolved. 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 Colorectal cancer screening: Colonoscopy done in 2023, tubular adenoma polyp found repeat 5 years vaccine: UTD with Tdap , UTD with COVID vaccine , Declines flu PFSH Medical History Sleep apnea Back pain Gout HLD (hyperlipidemia) HTN (hypertension) Surgical History History of surgery on wrist History of foot surgery (~2005) History of right knee surgery (~2008) History of right inguinal hernia repair (~2004) History of colonoscopy (~2013) Family History Father CAD (coronary artery disease) Myocardial infarction Heart problem Mother Hypertension Social History (Updated 11/29/24 @ 09:10 by Markel Geronimo PA-C) Housing: House Alcohol intake: current Alcohol intake frequency: a few times a month Alcohol type: beer and wine Patient Tobacco Use Status: Never used Tobacco e-Cigarette/Vaping Use: Never Used service: No Current occupational status: employed Current occupation: rt handed/[employer] Cognitive needs: No Hearing needs: No Vision needs: Yes (Reading glasses, Pt has not seen an eye doctor in 25 years.) Questionnaire PHQ-9 Over the last 2 weeks, how often have you been bothered by any of the following problems? 1. Little interest or pleasure in doing things: not at all 2. Feeling down, depressed, or hopeless: not at all 3. Trouble falling or staying asleep, or sleeping too much: not at all 4. Feeling tired or having little energy: not at all 5. Poor appetite or overeating: not at all 6. Feeling bad about yourself - or that you are a failure or have let yourself or your family down: not at all 7. Trouble concentrating on things, such as reading the newspaper or watching television: not at all 8. Moving or speaking so slowly that other people could have noticed. Or the opposite - being so fidgety or restless that you have been moving around a lot more than usual: not at all 9. Thoughts that you would be better off or of hurting yourself in some way: not at all Total score: 0 Depression Screening Interpretation: Negative Depression Screening Done: Yes 96577 - PHQ-9 Billing: Yes Source: Developed by Drs. Jimmy Hughes, Adelaida Gaffney, Flavio Guerrero and colleagues, with an educational wero from [employer]. Thrive Questionnaire Date Thrive assessed: 11/29/24 I am a: Patient What is your living situation today?: I have a steady place to live Within the past 12 months, did the food you bought not last and you didn't have the money to get more?: Never true Within the past 12 months, did you worry whether your food would run out before you got money to buy more?: Never true Do you have trouble paying for medicines?: No Do you have trouble getting transportation to medical appointments?: No Do you have trouble paying your heating and electricity bill?: No Do you have trouble taking care of your child, family member or friend?: No Do you have trouble with day-to-day activities such as bathing, preparing meals, shopping, managing finances, etc.?: No Are you currently unemployed and looking for a job?: No Are you interested in more education?: No Please select the resources that you would like help with: None Currently or been in a relationship where the following occur: No concerns reported THRIVE Score: 0 AUDIT C Alcohol Use Questionnaire (AUDIT-C) 1. How often do you have a drink containing alcohol?: 2-4 times a month 2. How many drinks containing alcohol do you have on a typical day when you are drinking?: 1 or 2 3. How often do you have six or more drinks on one occasion?: Never Total Score: 2 MALI-7 AMB Questionnaire MALI-7 Date MALI - 7 assessed: 11/29/24 Feeling nervous, anxious, or on edge: 0 = Not at all Not being able to stop or control worryin = Not at all Worrying too much about different things: 0 = Not at all Trouble relaxin = Not at all Being so restless that it is hard to sit still: 0 = Not at all Becoming easily annoyed or irritable: 0 = Not at all Feeling afraid as if something awful might happen: 0 = Not at all Total MALI-7 score (0-4 normal; 5-9 mild; 10-14 moderate; 15-21 severe): 0 Source: Developed by Drs. Jimmy Hughes, Adelaida Gaffney, Flavio Guerrero and colleagues, with an educational wero from [employer]. MALI-7 Assessment Billing MALI-7 Assessment Tool: MALI-7 Assessment 97577 Review of Systems Const Denies body aches, Denies chills, Denies excessive sweating, Denies fatigue, Denies fever(s) and Denies headache(s) Eyes Denies blurry vision ENT Denies dysphagia, Denies vertigo, Denies dizziness, Denies headache(s), Denies hearing loss and Denies tinnitus Card Denies chest pain, Denies chest pain with activity, Denies syncope, Denies irregular heart rhythm and Denies dyspnea Resp Denies chest congestion, Denies cough, Denies hemoptysis, Denies dyspnea and Denies wheezing GI Denies abdominal pain, Denies melena, Denies hematochezia, Denies coffee ground emesis, Denies dysphagia, Denies diarrhea, Denies nausea and Denies vomiting Denies difficulty urinating, Denies dysuria, Denies urinary frequency, Denies urinary hesitancy and Denies urinary urgency Musc Denies arthralgias, Denies limited range of motion, Denies muscle cramps and Denies muscle weakness Skin/Breast Denies rash and Denies skin ulcer Neuro Denies Abnormal speech present, Denies confusion, Denies vertigo, Denies dizziness, Denies syncope, Denies headache(s), Denies memory loss and Denies seizure-like activity Psych Denies anxiety, Denies confusion, Denies depression, Denies memory loss, Denies panic attacks and Denies paranoia Endo Denies excessive sweating, Denies fatigue, Denies flushing, Denies polydipsia and Denies polyuria Aller/Immun Denies wheezing Physical exam (Primary Care) Vital Signs: Last Vital Signs Temp 97.1 F 11/29/24 08:48 Pulse 62 11/29/24 08:48 BP 136/64 11/29/24 08:48 Pulse Ox 97 11/29/24 08:48 Oxygen Delivery Method Room Air 11/29/24 08:48 BMI result Body Mass Index 33.1 Tobacco/Smoking Status: Tobacco use Status Tobacco use date assessed 11/29/24 11/29/24 08:49 Patient Tobacco Use Status Never used Tobacco 11/29/24 08:47 e-Cigarette/Vaping Use Never Used 11/29/24 08:47 PHQ-9: PHQ-9 Score PHQ-9: Total score 0 11/29/24 08:49 Depression Screening Interpretation: Negative Thrive Assessment: Date of Thrive Assessment Date Thrive assessed 11/29/24 11/29/24 08:49 Currently or been in a relationship where the following occur: No concerns reported Const General: cooperative, comfortable, no acute distress, alert and awake; No confusion Orientation/consciousness: oriented to person, oriented to place, patient oriented x3 and No confusion HENMT Head: Yes normocephalic Ears: external ears normal and TM's normal bilaterally Face and sinus: No sinus tenderness Mouth: Normal oral and palatal mucosa present and tongue normal Teeth and gingiva: dentition normal and gingiva normal Throat: Yes posterior oropharynx normal, Yes tonsils normal and Yes uvula midline Eyes Conjunctivae: conjunctivae normal Sclerae: sclerae normal Pupils: Equal, round and reactive pupils present EOM: EOMs intact bilaterally Direct Ophthalmoscopy: No no photophobia Neck Neck: Yes no lymphadenopathy, No tender and Yes no JVD Thyroid: Thyroid normal Carotids: no bruits Chest Chest palpation & inspection: no tenderness Resp Effort & Inspection: normal respiratory effort, no audible wheezes, not labored and no stridor Auscultation: no crackles, no rales, no rhonchi and no wheezes Cardio Jugular venous distension: no JVD Rate: regular rate, not bradycardic and not tachycardic Rhythm: regular rhythm Bruits: no carotid bruits Peripheral pulses: Peripheral pulses 2+ throughout GI Inspection: Yes normal to inspection, No abdominal wall ecchymosis and No visible herniation Palpation (GI): Soft to palpation, nontender, no guarding, not rigid and No hepatosplenomegaly present Auscultation: normoactive bowel sounds General: Yes no CVA tenderness Back/Spine/Pelvis Back: no CVA tenderness and No back tenderness Cervical Spine: cervical ROM normal Thoracic/Lumbar Spine: thoracic and lumbar spine normal to inspection, straight leg raise negative bilaterally, No thoraco-lumbar ROM limited and No lumbar spinal tenderness Skin Lesions: no lesions Rashes: no rashes Wounds: no wounds Neuro General: oriented to person, oriented to place, patient oriented x3, CN's II-XI intact bilaterally and No confusion Cranial nerves: Yes Equal, round and reactive pupils present and Yes Normal accommodation reflex present Cognition (Neuro): normal cognition Speech: No Abnormal speech present Gait exam (Neuro): Normal gait present Motor exam (neuro): 5/5 motor strength present throughout Extrem Right upper extremity: full ROM; no cyanosis Left upper extremity: full ROM; no cyanosis Right lower extremity: no edema Left lower extremity: no edema Psych Appearance: grossly normal Mental Status: mental status grossly normal Affect: normal affect Attitude: cooperative Thought process: Normal thought process present Coding Level of Care Code Est Pt Prev Care 40-64y(85196) Diagnoses Annual physical exam Z00.00 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 M15.8 Mixed hyperlipidemia E78.2 Hyperlipidemia type: mixed hyperlipidemia Essential hypertension I10 Hypertension type: essential hypertension Class 1 obesity E66.811 Gout of left ankle, unspecified cause, unspecified chronicity M10.9 Gout site: ankle Gout etiology: unspecified cause Chronicity: unspecified Laterality: left Additional Codes MALI-7 Assessment Billing - MALI-7 Assessment Tool: MALI-7 Assessment 85072 ([id number]) PHQ-9 - 40076 - PHQ-9 Billing: Yes ([id number]) Assessment & Plan Assessment & Plan (1) Annual physical exam: Code(s): Z00.00 - Encounter for general adult medical examination without abnormal findings Category: Medical Plan: As per HPI (2) 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 Will get x-ray to evaluate thumb arthritis and refer to orthopedics for possible cortisone injection. Did advise on Voltaren topical NSAID cream (3) HLD (hyperlipidemia): Code(s): E78.5 - Hyperlipidemia, unspecified Category: Medical Qualifiers: Hyperlipidemia type: mixed hyperlipidemia Qualified Code(s): E78.2 - Mixed hyperlipidemia Plan: Patient continues with the use of atorvastatin 40 mg with decent affect. Will continue to follow fasting lipids with goal LDL to remain below 130 (4) HTN (hypertension): Code(s): I10 - Essential (primary) hypertension Category: Medical Qualifiers: Hypertension type: essential hypertension Qualified Code(s): I10 - Essential (primary) hypertension Plan: Patient's blood pressure acceptable today in office. Will continue his current dose of lisinopril with goal blood pressure to be below 140/90 (5) Class 1 obesity: Code(s): E66.811 - Obesity, class 1 Category: Medical Plan: Patient does understand his BMI is over 30 will work on being more physically active and adapting to better eating habits to reduce his weight (6) Gout: Code(s): M10.9 - Gout, unspecified Category: Medical Qualifiers: Gout site: ankle Gout etiology: unspecified cause Chronicity: unspecified Laterality: left Qualified Code(s): M10.9 - Gout, unspecified Plan: Patient's gout has been well controlled with daily use of allopurinol. Has not had any gout flares in quite some time since starting allopurinol. Will recheck his uric acid levels. Orders: Orders Lipid Panel Today E78.2 - Mixed hyperlipidemia Complete Blood Count no Diff Today E78.2 - Mixed hyperlipidemia Microalbumin, Random (w Creat) Today I10 - Essential (primary) hypertension Prostate Specific Antigen Scr Today I10 - Essential (primary) hypertension, Z12.5 - Encounter for screening for malignant neoplasm of prostate Comprehensive [place]. Panel Fast Today E78.2 - Mixed hyperlipidemia Uric Acid Today M10.9 - Gout, unspecified Medications: Refilled amlodipine 10 mg PO DAILY 90 days 90 tabs 1RF I10 - Essential (primary) hypertension lisinopril 5 mg PO DAILY 90 tabs 1RF Patient Instructions: Goal: Blood pressure to be below 140/90, LDL to be below 130. Barriers: Adherence to physical activity and healthy eating habits.
[2024-11-29 08:48] VITALS: BP 136/64; PULSE 62; TEMP 36.2; O2SAT 97; BMI 33.1
== END 2024-11-29 09:22 | disposition home or self-care (01) ==
PROVIDERS: PCP Physician Assistant; Visit Provider Physician Assistant
DX: Z00.00 Encounter for general adult medical examination without abnormal findings (principal); M15.8 Other polyosteoarthritis; Z68.33 Body mass index [BMI] 33.0-33.9, adult; E66.811 Obesity, class 1; E78.2 Mixed hyperlipidemia; I10 Essential (primary) hypertension; M10.9 Gout, unspecified

== ENCOUNTER → 2024-11-29 08:33 | Outpatient (BNVA) | payer BC, SELFPAY | PROVIDERS: PCP Physician Assistant; Visit Provider Physician Assistant | DX: Z00.00 Encounter for general adult medical examination without abnormal findings (principal); M15.8 Other polyosteoarthritis; E78.2 Mixed hyperlipidemia; I10 Essential (primary) hypertension; E66.811 Obesity, class 1; Z68.33 Body mass index [BMI] 33.0-33.9, adult; M10.9 Gout, unspecified; Z79.899 Other long term (current) drug therapy | CPT/HCPCS: 96127 ==

== ENCOUNTER 2025-01-05 06:11 | Day surgery (SDC) | payer BC, SELFPAY ==
[2025-01-03 13:59] VITALS: BMI 33.0
[2025-01-05 06:38] VITALS: BMI 32.4
[2025-01-05 06:40] VITALS: BP 173/83; PULSE 64; RESP 20; TEMP 36.3; O2SAT 97
[2025-01-05] MEDS: Lactated Ringers 1,000 ML 100 ML IVCONT (07:05)
--- NOTE | 2025-01-05 07:26 | HO.ANESPROP2 ---
HPI - Anesthesia Eval Consult details Narrative: for EGD [facility] Active Problems Active Problems: All Active Problems Class 1 obesity (Acute) 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 (Acute) Contact dermatitis (Acute) Atherosclerotic cardiovascular disease (Acute) Toe pain, right (Acute) Ammy onychomycosis (Acute) Presbyopia of both eyes (Acute) Colon cancer screening (Acute) Nonobstructive atherosclerosis of coronary artery (Acute) Abnormal stress ECG with treadmill (Acute) Abnormal EKG (Acute) Encounter for work capability assessment (Acute) Osteoarthritis of right knee (Acute) Osteoarthritis of left ankle (Acute) Sprain of left ankle (Acute) Bursitis (Acute) Annual physical exam (Acute) Gout attack (Acute) Lumbar back pain (Acute) HTN (hypertension) (Acute) HLD (hyperlipidemia) (Acute) Gout (Acute) Past Medical History Medical History (Updated 11/29/24 @ 09:25 by Markel Geronimo PA-C) Sleep apnea Back pain Gout HLD (hyperlipidemia) HTN (hypertension) Family History Family History Father CAD (coronary artery disease) Myocardial infarction Heart problem Mother Hypertension Family history of problems with anesthesia: No Surgical History Surgical History (Updated 01/03/25 @ 14:03 by Josiane Husain RN) History of esophagogastroduodenoscopy (EGD) (01/2024) History of surgery on wrist History of foot surgery (~2005) History of right knee surgery (~2008) History of right inguinal hernia repair (~2004) History of colonoscopy (~2013) History of Problems with Anesthesia: No Social History Social History (Updated 11/29/24 @ 09:10 by Markel Geronimo PA-C) Housing: House Alcohol intake: current Alcohol intake frequency: a few times a month Alcohol type: beer and wine Patient Tobacco Use Status: Never used Tobacco e-Cigarette/Vaping Use: Never Used Use of substances other than those prescribed or required for medical reasons: No Are you DNR?: No Advance Directives: No Advance Directives Information Provided: Yes service: No Current occupational status: employed Current occupation: rt handed/[employer] Cognitive needs: No Hearing needs: No Vision needs: Yes (Reading glasses, Pt has not seen an eye doctor in 25 years.) Meds Allergies Allergy/AdvReac Type Severity Reaction Status Date / Time carisoprodol [From [facility]] AdvReac Intermediate Altered Verified 01/05/25 06:33 mental status Active Medications: Current Medications Lactated Ringer's (Lr) 1,000 mls @ 100 mls/hr IVCONT .Q10H RAMAN Last Admin: 01/05/25 07:05 Dose: 100 mls/hr Home Medications ?Medication ?Instructions ?Recorded ?Confirmed ?Last Taken ?Type ibuprofen 200 mg tablet 200 mg PO Q8-10H PRN Pain 02/05/24 01/05/25 Unknown History Exam Height,Weight and Vital Signs: Height 5 ft 6 in Weight 91 kg Last Vital Signs Temp 97.4 F 01/05/25 06:40 Pulse 64 01/05/25 06:40 Resp 20 01/05/25 06:40 BP 173/83 H 01/05/25 06:40 Pulse Ox 97 01/05/25 06:40 O2 Del Method Room Air 01/05/25 06:40 Airway Mallampati Class: II TM Dist: <=3cm Neck ROM: Full Loose/Missing/Broken Teeth: No Heart: ok. see above. CTA reviewed. Lungs: ok. Assessment and Plan Assessment Anesthesia Assessment: Anesthesia Plan Discussed and Chart Reviewed Final Anesthetic Review Family History of Problems with Anesthesia: No History of Problems with Anesthesia: No NPO: Yes ASA Class: II and III Final Preanesthetic Review: No Changes in Pt Med Stat, Meds/Allgs Chart Reviewed, Consent Obtained/Reviewed and Anes Risks/Benef Reviewed Patient Risk: Intermediate Procedure Risk: Intermediate Anesthetic Plan Anesthetic Plan: Agree w/ Assess. and Plan and TIVA Disposition: Standard PACU
[2025-01-05 08:07] VITALS: BP 141/80; PULSE 68; RESP 16; TEMP 36.7; O2SAT 93
--- NOTE | 2025-01-05 08:08 | PM.OP ---
Brief Operative Note Date of Service: 01/05/25 Pre-op diagnosis: GERD Post-op diagnosis: other (Same, Hiatal hernia) Procedure: EGD with biopsies Surgeon: Jimmy Velazquez MD Anesthesia: MAC Was an Manager Export used for this Procedure?: No Estimated blood loss (mL): 2.0 Pathology: other (A. EG Junction at 37cm) Condition: stable Disposition: PACU
[2025-01-05 08:18] VITALS: BP 148/82; PULSE 66; RESP 16; TEMP 36.7; O2SAT 93
--- NOTE | 2025-01-05 08:33 | OP_ITS ---
DATE OF SERVICE: 01/05/2025 SURGEON: Jimmy Velazquez MD INDICATIONS: The patient presents for followup of history of erosive esophagitis and reflux. Full consent obtained from him for this, including risks of bleeding and perforation. PREOPERATIVE DIAGNOSIS: POSTOPERATIVE DIAGNOSIS: PROCEDURE PERFORMED: Esophagogastroduodenoscopy with biopsies. ESTIMATED BLOOD LOSS: COMPLICATIONS: ANESTHESIA: Monitored anesthesia care. ASSISTANTS: SPECIMENS: PREOPERATIVE DIAGNOSES: Gastroesophageal reflux and history of esophagitis. POSTOPERATIVE DIAGNOSES: Gastroesophageal reflux, history of esophagitis, hiatal hernia, rule out Ang esophagus. DESCRIPTION OF PROCEDURE: The patient was placed in left lateral decubitus position. The Olympus video gastroscope was passed in the posterior oropharynx and upper esophagus under direct vision. The scope was passed slowly into the distal esophagus. The gastroesophageal junction appeared at 37 cm. This area was slightly irregular consistent with small, less than 1 cm areas of possible Ang mucosa. There were no lesions, and there was no esophagitis. The scope entered the stomach. There was a small hiatal hernia. The scope was advanced to pylorus and the duodenum was cannulated to the descending portion of the duodenum including the bulb appeared normal without mass or ulceration. The scope was withdrawn back in the stomach. The gastric antrum and body appeared normal with good peristalsis. The scope was retroflexed visualizing the proximal stomach carefully, which appeared normal without any sign of mass or ulceration. Scope was straightened and withdrawn back to the esophagus. There was no evidence of any esophageal stricture nor esophageal ring. Biopsies were obtained at the EG junction at 37 cm. Proximal to this, the esophageal mucosa appeared normal. The scope was withdrawn from the patient. He tolerated the procedure well and was returned to the recovery area in stable condition. IMPRESSION: 1. Gastroesophageal reflux, rule out Ang esophagus. 2. Hiatal hernia. PLAN: The results of the biopsies will be checked. If there is Ang esophagus without dysplasia, I would recommend a repeat upper endoscopy when he has his next screening colonoscopy in 2028. If there is no Ang's mucosa, then I do not think he will need any further upper endoscopies. He will continue his daily omeprazole 20 mg, as he reports this is working well for him. He was advised not to use any aspirin or NSAIDs for 1 week. MD KONG Rodriguez/MARISSA / [id number]
== END 2025-01-05 08:34 | disposition home or self-care (01) ==
PROVIDERS: PCP Physician Assistant; Visit Provider Internal Medicine
PROC: 0DJ08ZZ Inspection of Upper Intestinal Tract, Via Natural or Artificial Opening Endoscopic (ICD-10-PCS; CPT 43235; principal; 2025-01-05 07:30)
DX: K22.10 Ulcer of esophagus without bleeding (principal); K21.9 Gastro-esophageal reflux disease without esophagitis; K44.9 Diaphragmatic hernia without obstruction or gangrene; I10 Essential (primary) hypertension; E78.5 Hyperlipidemia, unspecified; M51.360 Other intervertebral disc degeneration, lumbar region with discogenic back pain only; M10.9 Gout, unspecified; G47.33 Obstructive sleep apnea (adult) (pediatric); Z79.899 Other long term (current) drug therapy; Z79.1 Long term (current) use of non-steroidal anti-inflammatories (NSAID)
CPT/HCPCS: 43239; 88305; 88313; J2003; J2704; J3010

== ENCOUNTER 2025-07-29 08:02 | Outpatient (AMB) | payer BC, SELFPAY ==
--- NOTE | 2025-07-29 08:08 | MHC.OFFWIV ---
Intake Vital Signs 07/29/25 08:09 Height 5 ft 6 in Weight 204 lb BMI 32.9 BP 138/84 Blood Pressure Location Lt brachial Position Sitting Pulse 60 Pulse Source Pulse Oximeter Temp 98.4 F Temp Source Oral Pulse Oximetry (%) 97 Intake Visit Reasons: ep tick bite left upper arm tricep area Intake Note: pt is here for tick bite, patient removed tick bite last friday, pt states theres still pain in the area of bite Patient Tobacco Use Status: Never used Tobacco Allergies carisoprodol (From Soma) Adverse Reaction (Intermediate, Verified 07/29/25 08:12) Altered mental status Do you need a note to return to daycare/school/sports/work: No HPI HPI Comments History of Present Illness Details History of Present Illness - The patient is a 60-year-old male presenting with a tick bite. - The tick bite occurred last Friday while the patient was running in the [place] with his dog. - The tick was large but not engorged when removed, suggesting it had not been attached for an extended period. - The patient reports pain at the site of the bite, which persists when touched or when pressure is applied. - There is slight inflammation at the site, but no significant erythema or warmth was noted. - The patient has been bitten by ticks multiple times in the past, but this tick was larger than usual. Review of Systems - Integumentary: Reports pain and slight inflammation at the site of the tick bite. Denies warmth or significant erythema. - General: Denies fever or systemic symptoms. All systems reviewed and are unremarkable except as noted in HPI Physical Exam General: Cooperative, healthy appearing, comfortable, no acute distress and well developed Orientation: Patient oriented x3 Limitations: No limitations Head: Normal to inspection Ears: Hearing grossly normal bilaterally Nose: Normal External nose present Face and sinus: Normal facial exam Eyes: Appearance normal, both eyes and all related structures Neck: Normal visual inspection and Yes full ROM Respiratory: Normal respiratory effort and able to speak in complete sentences. Skin: left upper extremity posterior with 0.75cm round area of erythema, slight induration, no warmth, no erythema migrans rash observed. Neuro: Patient oriented x3 Extremities: Normal to inspection [facility] Medical History (Updated 07/29/25 @ 08:35 by Ciera Carrillo PA-C) Sleep apnea Back pain Gout HLD (hyperlipidemia) HTN (hypertension) Surgical History (Updated 01/03/25 @ 14:03 by Josiane Husain RN) History of esophagogastroduodenoscopy (EGD) (01/2024) History of surgery on wrist History of foot surgery (~2005) History of right knee surgery (~2008) History of right inguinal hernia repair (~2004) History of colonoscopy (~2013) Family History Father CAD (coronary artery disease) Myocardial infarction Heart problem Mother Hypertension Social History (Updated 11/29/24 @ 09:10 by Markel Geronimo PA-C) Housing: House Alcohol intake: current Alcohol intake frequency: a few times a month Alcohol type: beer and wine Patient Tobacco Use Status: Never used Tobacco e-Cigarette/Vaping Use: Never Used service: No Current occupational status: employed Current occupation: rt handed/[employer] Cognitive needs: No Hearing needs: No Vision needs: Yes (Reading glasses, Pt has not seen an eye doctor in 25 years.) Physical Exam Vital Signs: Last Vital Signs Temp 98.4 F 07/29/25 08:09 Pulse 60 07/29/25 08:09 BP 138/84 07/29/25 08:09 Pulse Ox 97 07/29/25 08:09 BMI result Body Mass Index 32.9 Assessment & Plan Assessment & Plan (1) Tick bite of left upper arm: Code(s): S40.862A - Insect bite (nonvenomous) of left upper arm, initial encounter; W57.XXXA - Bitten or stung by nonvenomous insect and other nonvenomous arthropods, initial encounter Qualifiers: Encounter type: initial encounter Qualified Code(s): S40.862A - Insect bite (nonvenomous) of left upper arm, initial encounter; W57.XXXA - Bitten or stung by nonvenomous insect and other nonvenomous arthropods, initial encounter Plan: Plan Patient was informed and verbally consented to the use of an ambient scribe for clinic note documentation during this visit. 1. Tick Bite - Administered a single dose of doxycycline 200 mg as prophylaxis against Lyme disease. - Advised to monitor for signs of infection, such as fever, rash, or increased pain, and to return if these symptoms develop. - Instructed to check the site for erythema migrans rash on the arm, especially after showering. Medications: New doxycycline hyclate 200 mg (2 x 100 mg) PO once 2 tabs 0RF tick bite ppx Coding Level of Care Code Est Pt Level 3 (54235) Diagnoses Tick bite of left upper arm, initial encounter S40.862A; W57.XXXA Encounter type: initial encounter
[2025-07-29 08:09] VITALS: BP 138/84; PULSE 60; TEMP 36.9; O2SAT 97; BMI 32.9
== END 2025-07-29 08:36 | disposition home or self-care (01) ==
PROVIDERS: PCP Physician Assistant; Visit Provider Physician Assistant
DX: S40.862A Insect bite (nonvenomous) of left upper arm, initial encounter (principal); W57.XXXA Bitten or stung by nonvenomous insect and other nonvenomous arthropods, initial encounter